=== PATIENT | female | born 1965 | race Caucasian/White ===

== ENCOUNTER → 2016-06-10 | Outpatient (CLI) | payer BC ==
[~2016-06-10] MED LIST: ALPR0.2550 PO; ASP81TEC PO; BISO1TAB6 PO; BUME1TAB4 PO; COLE1TAB PO; DIPH25CA79 PO; ESCI10TA48 PO; FAMO-119 PO; PNT40TEC PO; POTA10CA43 PO; PRD50T PO; SIMV10TA3 PO
[2016-06-10 10:02] LABS: BILIRUBIN,URINE NEGATIVE (NEGATIVE); KETONES,URINE NEGATIVE (NEGATIVE); LEUKOCYTE ESTERASE ,URINE 1+ (NEGATIVE); NITRITE,URINE NEGATIVE (NEGATIVE); PH,URINE 8 (5-9); PROTEIN,URINE NEGATIVE (NEGATIVE); UROBILINOGEN,URINE NORMAL (NORMAL)
[2016-06-10 10:13] LABS: WBC,URINE 0-2 /HPF
== END ==
LOC: LAB 09:40
PROVIDERS: ATTEND Internal Medicine
DX: R30.0 Dysuria (principal); R31.9 Hematuria, unspecified
CPT/HCPCS: 81000

== ENCOUNTER 2016-10-06 05:37 | Outpatient (CLI) | payer BC ==
[~2016-10-06] VITALS: Ht 167.6 cm; Wt 142.9 kg
== END 2016-10-06 14:35 ==
LOC: PREOP 05:37
PROVIDERS: ATTEND Internal Medicine
DX: Z01.818 Encounter for other preprocedural examination (principal); Z12.11 Encounter for screening for malignant neoplasm of colon

== ENCOUNTER 2016-10-08 07:25 | Day surgery (SDC) | payer BC ==
--- NOTE | 2016-10-04 07:23 | HISTORY AND PHYSICAL ---
DATE OF SERVICE: 10/08/2016 REASON FOR ADMISSION: Screening colonoscopy. HISTORY OF PRESENT ILLNESS: The patient is seen in the office on the 30 of September for followup of hypertension. Due to increased pedal edema, we had increased her Aldactazide 25/25 to b.i.d. She states that she has been eating out seldom, has cut back on carbohydrates, her weight is down 8 pounds and she only took b.i.d. dose of Aldactazide on 2-3 occasions. Her pedal edema has resolved and with dietary change and weight loss has not recurred. She does have a heavy sensation, especially in her left leg, where she has more varicosities, toward the end of the day and is still standing for a good part of the day at a [employer]. She entered into a new relationship and unfortunately, picked up HPV. She had an abnormal Pap test, but colposcopy was reportedly normal, done by Dr. Guzman. She had some reported HPV lesions removed from the vaginal area and thinks that she may have several in the perirectal area. Discussed the fact that I would review this at the time of her colonoscopy and make appropriate referral. In review of her records, it has been 10 years since her last colonoscopy. She does have one cousin diagnosed in her 50s with colon cancer. She is not aware of any first-degree relatives with colon cancer. She had no evidence for neoplasia 10 years ago. PHYSICAL EXAMINATION: GENERAL: An overweight white female who has lost 8 pounds over the past month. VITAL SIGNS: Blood pressure 130/70, heart rate 72 and regular. HEENT: Unremarkable. She is a Malempati class I oropharyngeal configuration. NECK: Revealed no JVD, adenopathy or bruits. CHEST: Clear. CARDIOVASCULAR: Regular rate and rhythm without murmur, S3 or S4. ABDOMEN: Soft, supple without mass, organomegaly or tenderness. EXTREMITIES: Trace pedal edema. No pretibial edema is noted. She has significant large vessel varicosities predominately involving the left leg and below the level of the knee. No tenderness is noted, no erythema is noted and there is no evidence for dermatitis. ASSESSMENT AND PLAN: 1. Hypertension. Under good control. Improved with dietary change. 2. Pedal edema. Improved with dietary change as well. 3. Venous insufficiency, left worse than right. Mildly symptomatic. Discussed that if her symptoms are worsening support hose while at work and leg elevation when resting at home. She is committed for a positive lifestyle change. Discussed that this would likely improve her venous insufficiency and overall health. 4. Patient was set up for a screening colonoscopy. Prep instructions were given and questions were answered. Electronic medical record was reviewed. 5. Human papillomavirus with genital involvement. Reportedly normal colposcopy. Will need to evaluate perirectal area for human papillomavirus involvement and for colonoscopy. Forty-five minutes care time spent today. Job ID: [id number] DocumentID: [id number] Dictated Date: 09/30/2016 11:43:40 Gold Nib Grinder Date: 09/30/2016 12:18:25 Dictated By: FARIDEH ZENDEJAS MD
[~2016-10-08] VITALS: Ht 167.6 cm; Wt 142.9 kg
[2016-10-08] MEDS ORDERED: 1/2 NS IV SOLUTION 1,000 ML IV STA (07:36)
[2016-10-08] MEDS ORDERED: FENO145T20 PO (07:41)
[2016-10-08] MEDS ORDERED: SPIR25TA PO (07:41)
[2016-10-08] MEDS ORDERED: RT-ALBUINH IH (07:42)
[2016-10-08] MEDS ORDERED: MIDAZOLAM 2 MG/2 ML (VERSED) VIAL IVP PRN (07:45)
[2016-10-08] MEDS ORDERED: LIDOCAINE JELLY 2% (XYLOCAINE) 5 ML TUBE MM PRN (07:45)
[2016-10-08] MEDS ORDERED: FLUMAZENIL (ROMAZICON) 0.1 MG/ML 5 ML VIAL INJ PRN (07:45)
[2016-10-08] MEDS ORDERED: NALOXONE 0.4 MG/ML 1 ML (NARCAN) VIAL IVP PRN (07:45)
--- NOTE | 2016-10-08 07:52 | Pre-Op Note & Conscious Sedat ---
Pre-Operative Progress Note H&P Reviewed The H&P was reviewed, patient examined and no changes noted. Date H&P Reviewed: Oct 08, 2016 Time H&P Reviewed: 07:51 Conscious Sedation Pre-Proced ASA Class: 2 Airway Mallampati Classification: ([place] appropriate class) I. II. III, IV Lungs Heart ASA score ASA 1: a normal healthy patient ASA 2: a patient with a mild systemic disease (mid diabetes, controlled hypertension, obesity ASA 3: a patient with a severe systemic disease that limits activity (angina , COPD, prior Myocardial infarction) ASA 4: a patient with an incapacitating disease that is a constant threat to life (CHF, renal failure) ASA 5: a moribund patient not expected to survive 24 hrs. (ruptured aneurysm) ASA 6: a declared brain patient whose organs are being harvested. For emergent operations, add the letter E after the classification Grade 1 Sedation Plan: Analgesia, Amnesia, Plan communicated to team members, Discussed options with patient/fam, Discussed risks with patient/fam Note The patient is an appropriate candidate to undergo the planned procedure, sedation, and anesthesia. The patient immediately re-assessed prior to indication. FARIDEH ZENDEJAS MD Oct 08, 2016 07:52
[2016-10-08 07:59] VITALS: BP 142/95
[2016-10-08] MEDS ORDERED: MIDAZOLAM 2 MG/2 ML (VERSED) VIAL ONE ×3 (08:35→08:36)
[2016-10-08] MEDS ORDERED: LIDOCAINE JELLY 2% (XYLOCAINE) 5 ML TUBE ONE (08:35)
[2016-10-08] MEDS ORDERED: fentaNYL INJECTION 100 MCG/2 ML AMP ONE ×2 (08:35)
[2016-10-08] MEDS: fentaNYL INJECTION 100 MCG/2 ML AMP IVP PRN ×2 (08:50→08:54)
[2016-10-08 09:25] VITALS: BP 120/67
[2016-10-08 09:50] VITALS: BP 131/82
[2016-10-08 10:00] VITALS: BP 131/82
--- NOTE | 2016-10-08 10:45 | OPERATIVE REPORT ---
DATE OF SERVICE: 10/08/2016 PROCEDURE: Screening colonoscopy. DESCRIPTION OF PROCEDURE: The patient was placed in the left lateral decubitus position. Prior to undergoing colonoscopy, digital rectal evaluation was performed. Anal sphincter tone was normal with perianal reflexes intact. No abnormalities were noted on digital inspection of the anal canal or distal rectal vault. At the 6 o'clock position along the squamous perineal mucosa adjacent to anus, was a 1 mm nodule. It had more of a subcutaneous appearance. 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 Could not rule out residual lesion, but its appearance again was not highly suggestive. No other abnormalities were noted. The colonoscope was then inserted into the rectum and under direct visualization advanced to the cecum. The cecum was identified by identification of the ileocecal valve, cecal strap. Photographic documentation was obtained. Careful inspection was made as the colonoscope was withdrawn. The quality of prep was not ideal as the patient refused to take the second part of her split dose prep because she did not like the taste. There was minimal solid stool bed in various areas and had to do flushing to remove liquid stool and other areas of stool-coated mucus. FINDINGS: There was no evidence for internal or external hemorrhoids and the rectum, sigmoid colon, descending colon and transverse colon were unremarkable. Present in the distal ascending colon, was an area of a somewhat variegated pattern in the mucosal lining. The area was flushed as there was some initial adherent stool. Even after flushing, somewhat variegated pattern persisted, raising the possibility of a flat adenoma. The area was biopsied and cauterized and submitted for histopathology. Remainder of the ascending colon and cecum were unremarkable. ASSESSMENT: Questionable flat adenoma in the proximal ascending colon. Area was biopsied and cauterized. The patient was advised to abstain from aspirin and nonsteroidal medication for the next week. There will be a 10-year recommendation if there is no evidence for neoplasia. The patient had small perineal nodule as noted above, which I felt less likely represented condyloma. Will reexamine the area with her regular followup in 3-4 months. Job ID: [id number] DocumentID: [id number] Dictated Date: 10/08/2016 10:07:00 Stain Remover Date: 10/08/2016 10:45:11 Dictated By: FARIDEH ZENDEJAS MD [facility]
== END 2016-10-08 10:00 | disposition home or self-care (01) ==
LOC: ENDO 07:25
PROVIDERS: ATTEND Internal Medicine
DX: Z12.11 Encounter for screening for malignant neoplasm of colon (principal); K63.9 Disease of intestine, unspecified; I10 Essential (primary) hypertension; R60.0 Localized edema; I87.2 Venous insufficiency (chronic) (peripheral)

== ENCOUNTER → 2016-12-31 | Outpatient (CLI) | payer BC ==
[~2016-12-31] MED LIST changes: +FENO145T20 PO; +RT-ALBUINH IH; +SPIR25TA PO
--- NOTE | 2017-01-04 12:53 | Diagnostic Imaging Report ---
INDICATION: Screening. The current study was also evaluated with a Computer Aided Detection (CAD) system. Comparison made with prior examination 11/19/13, 10/03/12 and 06/17/11. FINDINGS: There is a moderate amount of residual fibroglandular tissue, bilaterally. There is no dominant mass, spiculated lesion or malignant appearing clustered microcalcifications identified. Skin, nipples and axillae are unremarkable. IMPRESSION: Negative. ACR BI-RADS Category 1: Negative. Result letter will be mailed to the patient. Note: At least 10% of breast cancer is not imaged by mammography. Dictated by: Dictated on workstation # [id number]
== END ==
LOC: RAD 08:30
PROVIDERS: ATTEND Internal Medicine
DX: Z12.31 Encounter for screening mammogram for malignant neoplasm of breast (principal)
CPT/HCPCS: 77067

== ENCOUNTER → 2018-07-14 | Outpatient (CLI) | payer BC ==
[~2018-07-14] MED LIST changes: -FENO145T20 PO; +FENO145T37 PO
--- NOTE | 2018-07-14 19:26 | Diagnostic Imaging Report ---
INDICATION: Routine screening. Comparison is made with prior mammograms from 12/31/2016 and 11/19/2013. 2-D and 3-D bilateral screening mammography was performed with Computer-Aided Detection (CAD) system. FINDINGS: Scattered fibroglandular densities are identified bilaterally. The parenchymal pattern is stable. No mass or malignant-appearing microcalcifications are seen. The axillae are unremarkable. IMPRESSION: No mammographic features suspicious for malignancy are identified. ACR BI-RADS Category 1: Negative. Result letter will be mailed to the patient. Note: At least 10% of breast cancer is not imaged by mammography. Dictated by: Dictated on workstation # [id number]
== END ==
LOC: RAD 07:11
PROVIDERS: ATTEND Nurse Practitioner
DX: Z12.31 Encounter for screening mammogram for malignant neoplasm of breast (principal)
CPT/HCPCS: 77067

== ENCOUNTER → 2020-09-17 | Outpatient (CLI) | payer BC, OTHER ==
[~2020-09-17] MED LIST changes: +FENO145T26 PO; -FENO145T37 PO
--- NOTE | 2020-09-17 14:15 | Diagnostic Imaging Report ---
INDICATION: Routine screening. Comparison is made with prior mammogram 07/14/2018 and 12/31/2016. 2-D and 3-D bilateral screening mammography was performed with CAD. Scattered fibroglandular densities are identified bilaterally. The parenchymal pattern is stable. No mass or malignant appearing microcalcifications are seen. Axillae are unremarkable. IMPRESSION: BI-RADS Category 1 No mammographic features suspicious for malignancy are identified. ACR BI-RADS Category 1: Negative. Result letter will be mailed to the patient. Note: At least 10% of breast cancer is not imaged by mammography. Dictated by: Dictated on workstation # [id number]
== END ==
LOC: RAD 11:25
PROVIDERS: ATTEND Internal Medicine
DX: Z12.31 Encounter for screening mammogram for malignant neoplasm of breast (principal)
CPT/HCPCS: 77063; 77067

== ENCOUNTER → 2022-03-03 | Outpatient (CLI) | payer OTHER ==
--- NOTE | 2022-03-03 13:43 | Diagnostic Imaging Report ---
INDICATION: Routine screening. COMPARISON: 09/17/2020 and 07/14/2018. TECHNIQUE: 2D and 3D bilateral screening mammography was performed with CAD. FINDINGS: Scattered fibroglandular densities are identified bilaterally. The parenchymal pattern is stable. No mass or malignant-appearing microcalcifications are seen. The axillae are unremarkable. IMPRESSION: No mammographic features suspicious for malignancy are identified. ACR BI-RADS Category 1: Negative. Result letter will be mailed to the patient. Note: At least 10% of breast cancer is not imaged by mammography. Dictated by: Dictated on workstation # [id number]
== END ==
LOC: RAD 10:15
PROVIDERS: ATTEND Nurse Practitioner Family
DX: Z12.31 Encounter for screening mammogram for malignant neoplasm of breast (principal)
CPT/HCPCS: 77063; 77067